=== PATIENT | male | born 1995 | race Caucasian/White ===

== ENCOUNTER 2016-04-04 20:17 | Emergency (ER) | payer OTHER ==
[~2016-04-04] VITALS: Ht 188 cm; Wt 158.8 kg
[2016-04-04] MEDS ORDERED: LIDOCAINE 1% INJ 20 ML (XYLOCAINE) VIAL INJ STA (20:40)
[2016-04-04] MEDS ORDERED: CLINDAMYCIN 150 MG (CLEOCIN) CAP PO STA (21:13)
[2016-04-04] MEDS ORDERED: CLIN300C3 PO (21:18)
--- NOTE | 2016-04-04 21:18 | ED Integumentary General ---
General Chief Complaint: Skin/Wound Problems Stated Complaint: R SIDE LUMP Nursing Triage Note: Patient reports a wound on his R abdomen/side x 3 days History of Present Illness Time seen by provider: 20:45 Initial Comments Skin infection right flank Allergies and Home Medications Allergies Coded Allergies: No Known Drug Allergies (Unverified , 04/04/16) Home Medications Clindamycin HCl 300 Mg Capsule #30 300 MG PO TID Prescribed by: MORGAN CONDE on 04/04/162117 Constitutional: no symptoms reported see HPI EENTM: no symptoms reported see HPI Respiratory: no symptoms reported see HPI Cardiovascular: no symptoms reported see HPI Gastrointestinal: no symptoms reported see HPI Genitourinary: no symptoms reported see HPI Musculoskeletal: no symptoms reported see HPI Skin: see HPI other (abscess right flank) Psychiatric/Neurological: No Symptoms Reported See HPI Endocrine: No Symptoms Reported See HPI Hematologic/Lymphatic: No Symptoms Reported See HPI All Other Systems Reviewed Negative Unless Noted: Yes Past Frroxjf-[id number]-[id number] Hx Patient Social History Alcohol Use: Denies Use Recreational Drug Use: No Smoking Status: Never a Smoker Recent Foreign Travel: No Contact w/Someone Who Travel: No Recent Infectious Disease Expo: No Recent Hopitalizations: No Physical Abuse Screen: No Sexual Abuse: No Surgeries HX Surgeries: No Respiratory Hx Respiratory Disorders: No Cardiovascular Hx Cardiac Disorders: No Neurological Hx Neurological Disorders: No Reproductive System Hx Reproductive Disorders: No Sexually Transmitted Disease: No Genitourinary Hx Genitourinary Disorders: No Gastrointestinal Hx Gastrointestinal Disorders: No Musculoskeletal Hx Musculoskeletal Disorders: No Endocrine Hx Endocrine Disorders: No HEENT HX ENT Disorders: No Cancer Hx Cancer: No Psychosocial Hx Psychiatric Problems: No Integumentary HX Skin/Integumentary Disorder: No Blood Transfusions Hx Blood Disorders: No Physical Exam Vital Signs Vital Sign - Last 12Hours 04/04/16 20:27 Temp 97.8 Pulse 90 Resp 18 B/P 147/86 Pulse Ox 96 O2 Delivery Room Air Capillary Refill : Less Than 3 Seconds General Appearance: WD/WN no apparent distress HEENT: PERRL/EOMI normal ENT inspection TMs normal pharynx normal Neck: non-tender full range of motion normal inspection Cardiovascular: normal peripheral pulses regular rate, rhythm no murmur Respiratory: chest non-tender lungs clear normal breath sounds Gastrointestinal: normal bowel sounds non tender soft other (noted striae to bilat flank regions. ) Extremities: normal range of motion non-tender Neurologic/Psychiatric: no motor/sensory deficits alert normal mood/affect oriented x 3 Skin: normal color warm/dry Skin Problem Location: torso (right flank) Skin Problem Character: abscess (mild erythema, no drainage, marked induration measuring [id number], trace fluctuance) Lymphatic: no adenopathy I&D : Site: right flank Blade Size: 11 I & D Procedure: betadine prep sterile dressing applied Progress Skin prepped with Betadine; 3 ml 1% lidocaine injected; 11 blade to open abscess , trace thick purulent drainage, culture obtained. Wound irrigated with Peroxide (1 bottle) and 500 ml of NS. Antibiotic oint and bulky dressing applied. Patient tolerated procedure well. Progress/Results/Core Measures Results/Orders My Orders Orders-MORGAN CONDE Lidocaine 1% Injection (Xylocaine 1% Inj (04/04/16 20:40) Clindamycin Capsule (Cleocin Capsule) (04/04/16 21:13) Wound Culture (04/04/16 21:18) Vital Signs/I&O Vital Sign - Last 12Hours 04/04/16 04/04/16 20:27 21:27 Temp 97.8 97.8 Pulse 90 90 Resp 18 18 B/P 147/86 Pulse Ox 96 96 O2 Delivery Room Air Blood Pressure Mean: 106 Departure Impression Impression: Primary Impression: Skin abscess Qualified Code: L02.211 - Cutaneous abscess of abdominal wall Disposition: HOME, SELF-CARE Condition: Stable Departure-Patient Inst. Referrals: NO,LOCAL PHYSICIAN (PCP/Family) Primary Care Physician Patient Instructions: Abscess Incision and Drainage (DC), MRSA (DC) Add. Discharge Instructions: All discharge instructions reviewed with patient and/or family. Voiced understanding. Clean area with peroxide and keep covered with bandaid Take all of antibiotic. Return to ER or [facility] for follow up. Scripts Clindamycin HCl (Cleocin HCl)300 Mg [id number] Mg PO TID #30 CAP Ref 0 Prov:MORGAN CONDE 04/04/16 MORGAN CONDE Apr 04, 2016 21:18
[2016-04-04 21:27] VITALS: BP 147/86
== END 2016-04-04 21:26 | disposition home or self-care (01) ==
LOC: ER 20:19
DX: L02.211 Cutaneous abscess of abdominal wall (principal)
CPT/HCPCS: 10060; 87070; 87077; 87186; 87205